=== PATIENT | female | born 1965 | race Caucasian/White ===

== ENCOUNTER 2023-07-27 12:30 | Inpatient (IN) | payer OTHER ==
[~2023-07-27] VITALS: Ht 157.5 cm; Wt 125.9 kg
--- NOTE | ~2023-07-27 | DS ---
[facility] [address], [place] [address] Draft ADMISSION DATE: 07/27/2023 DISCHARGE DATE: 07/31/2023 REASON FOR ADMISSION: This 57-year-old white woman presented to the emergency room where she was thoroughly evaluated by Dr. Lira with complaints of abdominal pain and findings of an incarcerated supraumbilical incisional hernia. She has a distant history of gastric bypass. The patient had been evaluated about eight years ago for incisional hernia that was not incarcerated and was recommended weight loss program, which she was unable to participate in unfortunately. In the previous two days to current admission, she has had progressive nausea and vomiting without associated blood. No bowel movement in the preceding three days. Her Adam-en-Y gastric bypass was approximately [address] scan of the abdomen showed fat stranding within the hernia and 4.2 cm minimum fascial defect and bowel obstruction including dilated small bowel loops and areas of complete decompression of small bowel. There was no certainty of internal hernia, though it is acknowledged she is at risk for that based on her prior gastric anatomy. She was noted to have a white count elevation of 16,000, hematocrit 48.2 with platelets of 298,000 and she was admitted for further evaluation and care. PERTINENT PHYSICAL EXAMINATION: GENERAL: Showed a significantly obese white woman with a BMI of 50.8. CHEST: Showed no sign of tachypnea. HEART: Showed a wide-complex QRS configuration variable between 90-147 beats per minute and right bundle branch block. ABDOMEN: Quite markedly obese. There is a nonreducible hernia in the midline above the umbilicus, which is mildly tender. There is no sign of erythema. HOSPITAL COURSE: A consultation was undertaken with a hospitalist, Dr. Diaz given her wide-complex tachycardia. She was noted to be with low normal magnesium and potassium. She was treated with intravenous beta astrid with some delay to operation on the need for stabilizing her heart rate, which was accomplished. She underwent emergency operation at approximately 11 p.m. on July 26, where she underwent reduction of incarcerated hernia in the supraumbilical area with a fascial defect of greater than 12 cm. Resection of portion of omentum was required some of it ischemic. Transverse colon was within the hernia sac as well. Intraabdominal lysis of adhesions was undertaken as there were still dilated loops of small bowel and interloop adhesions were notable. There was no sign of internal hernia concordant to her gastric bypass operation and no mesenteric defect which would account for such finding. She incidentally had a PATIENT NAME: STACEY GARCIA DISCHARGE SUMMARY DATE OF : 61 REPORT #: [id number] PHYSICIAN: AKIL OROZCO MD PCP: NO PRIMARY CARE PHYSICIAN REPORT IS CONFIDENTIAL AND NOT TO BE RELEASED WITHOUT AUTHORIZATION [address] [address] Draft resection of a small Meckel's diverticulum and a decompressing enterotomy of Adam-en-Y limb, which was chronically and quite markedly dilated. She was maintained in the postoperative time frame in the intensive care unit with close monitoring of her heart rate, which was managed from medical perspective. She had a nasogastric tube that had been in place was removed in the first postoperative day. She had progressive improvement and good control of her heart rate with beta astrid as directed by Dr. Diaz. By time of discharge she was ambulating well, tolerating a regular diet, has no nausea or vomiting. The incision is healing well. There was no sign of recurrent hernia. An abdominal binder is in use as well. Her discharge plan is to return to home. She should lift no more than 10 pounds for the next four weeks. She should use her abdominal binder over the operative site. A drain that was placed was removed prior to discharge. Steri-Strips are in place and she is permitted to shower. She should walk on a daily basis, but again avoid lifting more than 10 pounds for the next four weeks. DISCHARGE MEDICATIONS: Her current medications for discharge will include: 1. Atenolol 25 mg p.o. daily. 2. Ibuprofen 600 mg p.o. q.6 hours as needed for moderate pain. 3. Tylenol 1000 mg p.o. q.6 hours as needed for pain. 4. She will continue with trazodone 100 mg p.o. at bedtime vitamin D3 125 mcg p.o. at bedtime. DISCHARGE DIAGNOSES: 1. Incarcerated strangulated incisional hernia fascial defect 12.6 cm with ischemic portion of omentum (resected) and repair of incisional hernia with implantation of Prolene mesh in the properitoneal space. 2. Intraabdominal extensive lysis of adhesions for concurrent adhesive related small bowel obstruction. 3. Incidental excision of small Meckel diverticulum. 4. Decompressive enterotomy Adam-en-Y limb of small bowel. 5. Diagnosis of morbid obesity. BMI greater than 50. 6. Right bundle branch block with perioperative tachycardia (resolved). FOLLOWUP PLAN: She is return to see me in approximately a month. She will use her abdominal binder as instructed and with no more than 10 pounds for the next four weeks. PATIENT NAME: STACEY GARCIA DISCHARGE SUMMARY DATE OF : 61 REPORT #: [id number] PHYSICIAN: AKIL OROZCO MD PCP: NO PRIMARY CARE PHYSICIAN REPORT IS CONFIDENTIAL AND NOT TO BE RELEASED WITHOUT AUTHORIZATION [facility] [address], [place] [address] Draft MD ABY Neff/CARMELO /[id number] cc: Dr. Jesus Copies: ~ PATIENT NAME: STACEY GARCIA DISCHARGE SUMMARY DATE OF : 61 REPORT #: [id number] PHYSICIAN: AKIL OROZCO MD PCP: NO PRIMARY CARE PHYSICIAN REPORT IS CONFIDENTIAL AND NOT TO BE RELEASED WITHOUT AUTHORIZATION
[2023-07-27] MEDS ORDERED: ATENOLOL25 MG PO (12:39)
[2023-07-27] MEDS ORDERED: VITAMIN D3125 MC1 PO (12:40)
[2023-07-27] MEDS ORDERED: TRAZODONE HCL100 MG PO (12:40)
[2023-07-27 12:56] LABS: BASOPHILS 0.4 % (0-2); EOSINOPHILS 0.3 % (0-6); HEMATOCRIT 48.2 % (35.0-50.0); HEMOGLOBIN 16.1 g/dL (12.0-18.0); LYMPHOCYTES 11.4 % (24-44); MCH 28.8 (27-36); MCHC 33.4 g/dl (30-36); MCV 86.2 fl (81-99); MONOCYTES 7.5 % (0-12); NEUTROPHILS 80.4 % (39-80); PLATELET COUNT 298 K/uL (140-440); RBC 5.59 M/ul (4.3-5.7); RDW 13.7 (10.5-15.0)
[2023-07-27 13:12] LABS: ALBUMIN 3.8 g/dL (3.4-5.0); ALBUMIN/GLOBULIN RATIO 0.9 (1.1-2.4); ANION GAP 14.7 (7-21); BILIRUBIN, TOTAL 0.7 ng/dL (0.2-1.0); BUN/CREATININE RATIO 14.87 (6.0-28.6); CALCIUM 9.5 mg/dL (8.5-10.1); CREATININE, SERUM 1.21 mg/dL (0.55-1.02); MAGNESIUM 1.9 mg/dL (1.8-2.4); POTASSIUM 3.7 mmol/L (3.5-5.1)
[2023-07-27] MEDS ORDERED: LACTATED RINGER'S 1,000 ML IV PRN (14:00)
[2023-07-27] MEDS ORDERED: HYDROmorphone HCL 1 MG/ML SYR IV SCH ×2 (14:00→23:15)
[2023-07-27 14:22] LABS: BILIRUBIN, URINE NEGATIVE (negative); BLOOD/HGB, URINE NEGATIVE (Negative); KETONE, URINE NEGATIVE (Negative); LEUK ESTERASE, URINE NEGATIVE (negative); NITRITE, URINE NEGATIVE (negative)
[2023-07-27] MEDS ORDERED: HYDROmorphone HCL 1 MG/ML SYR IV ONE (15:45)
[2023-07-27] MEDS ORDERED: ondansetron HCL 4 MG/2 ML VIAL IV ONE (15:45)
[2023-07-27] MEDS ORDERED: LIDOCAINE 2% VISCOUS 6 ML SYR TOP ONE ×2 (17:00→22:45)
[2023-07-27] MEDS ORDERED: POTASSIUM CHLORIDE 40 MEQ,LIDOCAINE HCL 1% 40 MG in DEXTROSE 5% 500 ML IV ONE (17:15)
[2023-07-27] MEDS ORDERED: MAGNESIUM SULFATE 2 GM/50 ML BAG IV ONE (17:15)
[2023-07-27] MEDS ORDERED: hydrALAZINE HCL 20 MG/ML VIAL IV PRN (17:30)
[2023-07-27] MEDS ORDERED: METOPROLOL TARTRATE 5 MG/5 ML VIAL IV PRN (17:30)
--- NOTE | 2023-07-27 17:40 | NUR ---
rn in room 9 er for trsf to 127 ccu - skin assess wnl. pt to bsc to void lg amt just min before with looseleaf binder coverer, ngt with lg amt of green bile to int. suction. pt amb from strecher to bed on arrival to ccu. chlorhexidine wipes done and new gown for surgery plan, pt scds on and iv r ac wnl. vitals taken with dr contreras at bedside, hr 110-120s and room air 90-95%, bp 150/90 map 107.
[2023-07-27 18:22] VITALS: BP 120/83
--- NOTE | 2023-07-27 18:43 | NUR ---
pt to or via bed with lai rn, report to her at bedside, ngt clamped, and iv fusing kcl ang mg on pump site wnl. lr with strait tubing on standby and new iv in r hand placed at bedside. previous to that see emar - dr contreras at bedside and vo to push 5 mg of lopressor and wait then repeat (emar has vitals and times) pt is not symptomatic at this time her biggest complaint is the discomfort of the ngt in her nose. her s/o sonia is in room at bedside and he and pt are educated and agree with plan of care and sx with dr clemons. white board updated with contact info and pt out of dept.
[2023-07-27] MEDS ORDERED: CEFAZOLIN SODIUM 3 GM/30 ML SYR ONE (18:48)
[2023-07-27] MEDS ORDERED: SUGAMMADEX SODIUM 200 MG/2 ML ML ONE (18:51)
[2023-07-27] MEDS ORDERED: ROCURONIUM BROMIDE 50 MG/5 ML SYR ONE ×2 (18:51→19:39)
[2023-07-27] MEDS ORDERED: ACETAMINOPHEN 1,000 MG/100 ML VIAL ONE (18:51)
[2023-07-27] MEDS ORDERED: propofoL 200 MG/20 ML VIAL ONE (18:51)
[2023-07-27] MEDS ORDERED: SUCCINYLCHOLINE IN 0.9% NACL 200 MG/10 ML SYRINGE ONE (18:51)
[2023-07-27] MEDS ORDERED: LIDOCAINE HCL 2% 5 ML SDV ONE (18:51)
[2023-07-27] MEDS ORDERED: fentaNYL citrate 100 MCG/2 ML VIAL ONE (18:51)
[2023-07-27] MEDS ORDERED: MIDAZOLAM HCL 2 MG/2 ML VIAL ONE (18:52)
[2023-07-27] MEDS ORDERED: KETAMINE in NS 50 MG/5 ML SYR ONE (18:52)
[2023-07-27] MEDS ORDERED: LIDOCAINE HCL 2% 20 MG/ML VIAL INJ ONE (18:52)
[2023-07-27] MEDS ORDERED: ondansetron HCL 4 MG/2 ML VIAL ONE (18:53)
[2023-07-27] MEDS ORDERED: DEXAMETHASONE SOD PHOS 4 MG/ML VIAL ONE ×4 (18:53→21:10)
[2023-07-27] MEDS ORDERED: CEFAZOLIN SODIUM 3 GM/30 ML SYR IV ONE (19:00)
[2023-07-27] MEDS ORDERED: dexmedeTOMIDine HCl 200 MCG/2 ML VIAL ONE (19:25)
[2023-07-27] MEDS ORDERED: PHENYLEPHRINE HCL 10 MG/ML VIAL ONE (19:25)
[2023-07-27] MEDS ORDERED: fentaNYL citrate 50 MCG/ML SDV IV PRN (19:45)
[2023-07-27] MEDS ORDERED: ondansetron HCL 4 MG/2 ML VIAL IV PRN ×2 (19:45→22:45)
[2023-07-27] MEDS ORDERED: NALOXONE HCL 0.4 MG SYR IV PRN (19:45)
[2023-07-27] MEDS ORDERED: droPERidol 5 MG/2 ML VIAL IV PRN (19:45)
[2023-07-27] MEDS ORDERED: HYDROmorphone HCL 1 MG/ML SYR IV PRN ×2 (19:45→22:45)
[2023-07-27] MEDS ORDERED: PROCHLORPERAZINE EDISYLATE 10 MG/2 ML VIAL IV PRN ×2 (19:45→22:45)
[2023-07-27] MEDS ORDERED: IBLOOD GLUCOSE TEST STRIP 1 EA TEST VI PRN (19:45)
[2023-07-27] MEDS ORDERED: LACTATED RINGER'S 1,000 ML IV ONE ×3 (20:08→22:07)
[2023-07-27] MEDS ORDERED: Ropivacaine HCl 0.5% 30 ML VIAL ONE (21:10)
[2023-07-27] MEDS ORDERED: SODIUM CHLORIDE 0.9% 20 ML IV ONE (21:10)
--- NOTE | 2023-07-27 22:32 | EKG ---
[facility] [address] [place] [address] Signed Normal sinus rhythm Right bundle branch block Abnormal ECG No previous ECGs available Confirmed by Regis Perez MD () on 07/27/2023 10:31:53 PM Electronically Signed By: REGIS PEREZ MD 07/27/232231 PATIENT NAME: STACEY GARCIA Electrocardiogram DATE OF : 61 PHYSICIAN: REGIS PEREZ MD REPORT #: [id number] REPORT IS CONFIDENTIAL AND NOT TO BE RELEASED WITHOUT AUTHORIZATION
--- NOTE | 2023-07-27 22:37 | EKG ---
[facility] [address] [place] [address] Signed Wide QRS tachycardia with premature supraventricular complexes Right bundle branch block T wave abnormality, consider inferior ischemia Abnormal ECG When compared with ECG of 27-JUL-2023 16:13, Wide QRS tachycardia has replaced Sinus rhythm Confirmed by Regis Perez MD () on 07/27/2023 10:37:21 PM Electronically Signed By: REGIS PEREZ MD 07/27/23 2237 PATIENT NAME: STACEY GARCIA Electrocardiogram DATE OF : 61 PHYSICIAN: REGIS PEREZ MD REPORT #: [id number] REPORT IS CONFIDENTIAL AND NOT TO BE RELEASED WITHOUT AUTHORIZATION
[2023-07-27] MEDS ORDERED: KETOROLAC TROMETHAMINE 30 MG/ML VIAL IV PRN (22:45)
[2023-07-27] MEDS ORDERED: ACETAMINOPHEN 1,000 MG/100 ML VIAL IV PRN (22:45)
[2023-07-27] MEDS ORDERED: LACTATED RINGER'S 1,000 ML IV SCH (22:45)
--- NOTE | 2023-07-27 22:46 | NUR ---
07/27/232245 Lyudmila Bailon 2241: PT ARRIVES TO CCU ROOM 127, ACCOMPANIED BY MANAGER PRODUCTION, GOLF COURSE ARCHITECT, MARKET SUPERINTENDENT. ORAL AIRWAY IS IN PLACE. MANAGER PRODUCTION PERFORMING JAW THRUST. NO RESPONSE TO VERBAL OR TACTILE STIMULI.
[2023-07-27] MEDS ORDERED: FAMOTIDINE 20 MG/ 2 ML VIAL IV SCH (22:48)
--- NOTE | 2023-07-27 23:10 | NUR ---
RECEIVED REPORT FROM BIZTALK DEVELOPER. PATIENT IS RESTING IN BED. PATIENT REPORTS 4/10 PAIN. PAM ART BEDSIDE. IV INFUSING PER ORDER.
--- NOTE | 2023-07-27 23:56 | NUR ---
PATIENT CONTINUES TO RATE PAIN AT A 4/10, PRN PAIN MEDICATION GIVEN PER ORDER. PATIENT HAS SCDS IN USE. AVINASH EMPTIED. CLIFTON IN PLACE AND DRAINING YELLOW URINE. PATIENTS CLIFTON EMPTIED. ABD BINDER IN PLACE. PATIENT DENIES ANY NAUSEA. NG TO LWIS. PATIENT PROVIDED ICE SHIPS FOR COMFORT. PATIENT EDUCATED ON ICE CHIPS AND SIPS FOR COMFORT AND PATIENT VERBALIZED UNDERSTANDING. PATIENT IS ON RA. PATIENT DENIES ANY FURTHER NEEDS. CALL LIGHT IN REACH. IV INFUSING PER ORDER.
[2023-07-28] VITALS (14 sets, daily range): BP systolic 98–131; BP diastolic 61–89
--- NOTE | 2023-07-28 00:42 | NUR ---
PATIENT IS RESTING IN BED WITH EYES CLOSED, RR 19. IV INFUSING PER ORDER. PATIENTS CALL LIGHT IN REACH.
--- NOTE | 2023-07-28 01:02 | NUR ---
PATIENT IS RESTING IN BED. PATIENTS CLIFTON EMPTIED. AVINASH NO NEW DRAINAGE. NG TO LWIS. PATIENT DENIES ANY PAIN OR NAUSEA. PATIENT DENIES ANY FURTHER NEEDS. CALL LIGHT IN REACH. IV INFUSING PER ORDER. SCDS IN USE.
--- NOTE | 2023-07-28 02:32 | NUR ---
PATIENT RESTING IN BED WITH EYES CLOSED. THIS RN NOTED THAT PATIENTS HR WAS 143 THEN DROPPED INTO THE 130'S AND SUSTAINDED, PRN MEDICATION GIVEN PER ORDER. PATIENT DENIES ANY CHEST PAIN OR PRESSURE. PATIENT DENIES ANY PAIN OR NAUSEA. PATIENT DENIES ANY NEEDS CALL LIGHT IN REACH. IV INFUSING PER ORDER.
--- NOTE | 2023-07-28 03:21 | NUR ---
PATIENT PLACED ON OXYMASK DUE TO PATIENTS OXYGEN DECREASING INTO THE LOW 80'S WHILE ASLEEP. PATIENT BRIEFLY AWOKE AND DENIES ANY PAIN OR NAUSEA. PATIENT DENIES ANY FURTHER NEEDS. CALL LIGHT IN REACH. IVINFUSING PER ORDER.
--- NOTE | 2023-07-28 04:16 | NUR ---
PATIENT REPOSITIONED IN BED. PATIENT DENIES ANY PAIN OR NAUSEA. NG TO LWIS. IV INFUSING PER ORDER. PATIENT DENIES ANY FURHTER NEEDS. CALL LIGHT IN REACH. CLIFTON EMPTIED. CATH CARE COMPLETED.
--- NOTE | 2023-07-28 04:56 | NUR ---
PLACED CALL TO MD WITH CONCERNS OF PATIENTS INCREASING HR INTO THE 130-140 AND SUSTAINING IN THE HIGH 120'S. VERBAL ORDER RECEIVED TO REPEAT IV LOPRESSOR X1, VERIFIED ORDER USING THE REPEATBACK METHOD. PATIENT IS RESTING IN BED WATCHING TV ON HER PHONE. PATIENT DENIES ANY CHEST PAIN OR PRESSURE. PATIENT DENIES ANY PAIN OR NAUSEA. PATIENT DENIES ANY NEEDS. CALL LIGHT IN REACH.
[2023-07-28 05:36] LABS: HEMOGLOBIN 14.6 g/dL (12.0-18.0)
[2023-07-28 05:38] LABS: BASOPHILS 0.1 % (0-2); HEMATOCRIT 44.7 % (35.0-50.0); LYMPHOCYTES 5.9 % (24-44); MCH 28.5 (27-36); MCHC 32.6 g/dl (30-36); MCV 87.5 fl (81-99); MONOCYTES 6.4 % (0-12); NEUTROPHILS 87.6 % (39-80); PLATELET COUNT 252 K/uL (140-440); RDW 13.6 (10.5-15.0)
--- NOTE | 2023-07-28 05:42 | NUR ---
PATIENT IS RESTING IN BED WATCHING TV. PATIENTS HR INCREASED INTO THE 140'S. PLACED CALL TO . RECEIVED ORDER TO GIVE LOPRESSOR 5MG IV NOW AND THEN WAIT WAIT 5-10 MIN AND REPEAT 5MG DOSE IF HR CONTINUES TO BE ELEVATED AND BP IS WNL. PATIENT CONTINUES TO DENY ANY CHEST PAIN OR PRESSURE.
[2023-07-28 05:51] LABS: ALBUMIN 2.8 g/dL (3.4-5.0); ALBUMIN/GLOBULIN RATIO 0.85 (1.1-2.4); ANION GAP 11.4 (7-21); BILIRUBIN, TOTAL 0.7 ng/dL (0.2-1.0); BUN/CREATININE RATIO 16.52 (6.0-28.6); CALCIUM 8.2 mg/dL (8.5-10.1); CREATININE, SERUM 1.15 mg/dL (0.55-1.02); MAGNESIUM 2.1 mg/dL (1.8-2.4); PHOSPHORUS, INORGANIC 4.8 mg/dL (2.5-4.9); POTASSIUM 4.4 mmol/L (3.5-5.1); PROTEIN, TOTAL 6.1 g/dL (6.4-8.2)
--- NOTE | 2023-07-28 05:59 | NUR ---
PATIENT GIVEN PRN LOPRESSOR AT APPROX 0540. HR DECREASED THEN RETURN TO THE 130'S. SECOND DOSE OF IV LOPRESSOR GIVEN PER ORDER. PATIENT CONTINUES TO REST IN BED WATCHING TV ON HER PHONE. NO NEEDS NOTED. CALL LIGHT IN REACH.K
[2023-07-28] MEDS ORDERED: CEFAZOLIN SODIUM 3 GM/30 ML SYR IV SCH (06:00)
--- NOTE | 2023-07-28 07:20 | NUR ---
report from mason rn, pt up in on phone - denies needs or symptoms - hr 120-140 dr jeter, call light in [place] to gravity.
--- NOTE | 2023-07-28 07:49 | NUR ---
DR PEREZ HERE - REVIEW TELE - PT HR VARIES 95-130 SINUS TACHY - HE WILL PUT IN NEW ORDERS.
[2023-07-28] MEDS ORDERED: LORazepam 2 MG/ML VIAL IV ONE (08:00)
--- NOTE | 2023-07-28 08:26 | NUR ---
curtains open - pt up in room with rn to manage lines/ngt - stand and walk/leg raises/strech. back to with call light - hr 140's with exertion, 94 hr at rest - ativan give see emar for relaxation and anxiety - pt is anxious to go home and get better. re assured. cain to gravity, rita to rlq wnl, ab binder on and cdi, ngt intermit suction with green bile to suction. ngt site r maggie wnl. call light in hand.
--- NOTE | 2023-07-28 08:55 | NUR ---
pt up in chair - dr contreras here in room. discuss plan of care.
--- NOTE | 2023-07-28 09:01 | NUR ---
dr clemons in room with dr contreras and pt/family. discuss plan of care.
[2023-07-28] MEDS ORDERED: METOPROLOL TARTRATE 5 MG/5 ML VIAL IV SCH (09:30)
--- NOTE | 2023-07-28 09:40 | NUR ---
PATIENT ALERT AND ORIENTED, UP IN RECLINER. SIGNIFICANT OTHER IN ROOM WELL. VERIFY DEMOGRAPHICS WITH PATIENT. LIVES IN HOUSE, NO STAIRS. STATES SHE HAS A BP CUFF, NO DME. REMAINS CAPABLE OF DRIVING AT BASELINE. NO FINANCIAL HARDSHIP. ABLE TO PAY UTILITIES, BUY FOOD AND MEDICATION WITHOUT DIFFICULTY. DOES NOT HAVE ANY KNOWN NEEDS AT THIS TIME. INFORMED IF NEEDS [facility] TO NOTIFY STAFF AND THEY WILL CALL CASE MANAGEMENT. VERBALIZES UNDERSTANDING.
--- NOTE | 2023-07-28 09:48 | NUR ---
VISITED DURING SPIRITUAL CARE ROUNDS. LISTENED EMPATHETICALLY PT TALKED OF HEALTH AND SPIRITUAL STATUS; REPORTED NO NEEDS; EXHIBITED GOOD HUMOR, STRONG RELATIONAL RESOURCES. PROVIDED SUPPORTIVE PRESENCE, HOSPITALITY, ANTICIPATORY GUIDANCE, PRAYER. PT AND EXPRESSED GRATITUDE.
--- NOTE | 2023-07-28 09:52 | NUR ---
PT UP IN CHAIR - RESTING - HR IS 88 AND PT FEELING WELL VISITING WITH FRIEND. MUKESH IS WORKING WELL.
--- NOTE | 2023-07-28 10:13 | NUR ---
PT STOOD UP FROM CHAIR - ETIENNE EVANGELISTA WNL, PT AMB IN ROOM AND BACK TO BED, WITH CALL LIGHT IN REACH - IV WNL R ARM. NGT TO INT. SUCTION WNL - AVINASH WNL, HR WELL CONTROLLED AT 88.
--- NOTE | 2023-07-28 12:32 | NUR ---
UR CLINICAL REVIEW: [facility] COMP INPT 07/27/23 @ 2249 YES-STATUS MATCHES ORDER AUTH PENDING CLINICAL REVIEW PLAN TO DC TO HOME WHEN STABLE CONCURRENT REVIEW 07/31/23
--- NOTE | 2023-07-28 13:13 | NUR ---
rn assist pt to chair for comfort, i/o complete - rita with red drainage site wnl, ab binder adjusted, iv clearned and site wnl, ngt 300 ml green/yellow bile out. pt in with call light watching tv, hr 88 after 5 mg lobetalol - see emar,.
--- NOTE | 2023-07-28 14:57 | NUR ---
pt amb to br with rn, void 200 ml urine, back to chair - denies needs, sob with exertion noted - pt reports sedentary lifestyle and sob is normal.
[2023-07-28] MEDS ORDERED: LORazepam 2 MG/ML VIAL IV PRN (16:00)
--- NOTE | 2023-07-28 16:11 | NUR ---
MED REC COMPLETE
--- NOTE | 2023-07-28 16:35 | NUR ---
CALL LIGHT ANSWERED, PATIENT SNEEZED AND WAS WORRIED SHE OPENED INCISION, CATE PHELAN IN TO ACCESS. PATIENT INTO BR FOR SMALL VOID. BACK TO BED, AVINASH DRAINED 40ML CHARTED. CALL LIGHT AND PERSONAL ITEMS IN EASY REACH. IN ROOM
--- NOTE | 2023-07-28 18:51 | NUR ---
pt reports feeling well - called for blanket - denies needs.
--- NOTE | 2023-07-28 20:30 | NUR ---
PATIENT PROVIDED SCHEDULED MEDS. PATIENT UP TO THE BATHROOM WITH SBA. PATIENT TOLERATED WELL, SOB WITH ACTIVITY. TOLERATES RA. LUNG SOUNDS ARE CLEAR. PATIENT REPORTS ADEQUATE PAIN CONTROL. ABD BINDER IN PLACE. NO GI UPSET. NG TUBE FLUSHED WITH 30MLS WATER. CONTINUED LIWS. PATIENT VS STABLE. HR 120-130 WITH FREQUENT PVCs. BRIT DRAIN EMPTIED FOR 20 MLS RED DRAINAGE. PATIENT RETURNED TO BED. ASSISTED TO WASH HER FACE AND BRUSH HER HAIR. IVF INFUSING PER ORDER, SITE WNL.
--- NOTE | 2023-07-28 22:46 | NUR ---
PATIENT PROVIDED WITH SCHEDULED MEDS AND PRN ATIVAN FOR ANXIETY. PATIENT IS MOSTLY ANXIOUS ABOUT THE NG TUBE AND NOT BEING ABLE TO EAT. DISCUSSED PLAN OF CARE, PATIENT VERBALIZED UNDERSTANDING. PAIN IS WELL CONTROLED AT THIS TIME. NO GI UPSET. VS STABLE. HR IRREGULAR, SINUS WITH P-WAVES BUT FREQUENT RUNS OF PVCs. BP WNL. PATIENT TOLERATING ROOM AIR. CALL LIGHT IN REACH.
--- NOTE | 2023-07-28 23:46 | NUR ---
PT CALLED TO USE RESTROOM. PT HAS CALL LIGHT IN REACH.
--- NOTE | 2023-07-29 00:31 | NUR ---
PATIENT APPEARS COMFORTABLE RESTING IN BED EYES CLOSED. VS STABLE. HR CONTINUES TO BE IRREGULAR; HR 110-140'S. NOT SUSTAINING GREATER THAN 130'S. TOLERATING ROOM AIR. NG TUBE TO LIWS. IVF PER ORDER, SITE WNL. CALL LIGHT IN REACH.
--- NOTE | 2023-07-29 00:51 | NUR ---
PATIENT PROVIDED PRN PAIN MEDS FOR PAIN 5/10 IN ABD. PATIENT DENIED GI UPSET. NG TUBE DRAINING WELL WITH LIWS. VS STABLE. CALL LIGHT IN REACH.
--- NOTE | 2023-07-29 02:00 | NUR ---
PATIENT UP TO THE BSC TO VOID. PATIENT VOIDED AND RETURNED TO BED WITH ASSIST OF SCRAP KETTLE TENDER. ABOUT 10 MINS LATER PATIENT GOT UP UNASSISTED TO THE BSC TO ATTEMPT TO HAVE A BM. ZI RN FOUND PATIENT WITH CORDS TANGLED AND NG TUBE TAPE BEING PULLED FROM NOSE. NG TUBE APPEARS TO STILL BE FUNCTIONAL WITH DRAINAGE NOTED WITH SUCTION. PATIENT DID NOT HAVE BM. PINK TAPE PLACED ON NG TUBE BY THIS RN AND PATIENT ASSISTED BACK INTO BED. PATIENT AGREES SHE SHOULD NOT EXIT BED WITHOUT ASSIST. BED ALARM ACTIVE. BSC MOVED FROM VIEW. PATIENT RESTING IN BED NEW. MONITOR IN PLACE. IV SITE WNL, IVF PER ORDER. CALL LIGHT IN REACH.
--- NOTE | 2023-07-29 04:00 | NUR ---
PATIENT APPEARS RESTFUL IN BED. VS STABLE. IVF PER ORDER, SITE WNL. CALL LIGHT IN REACH.
--- NOTE | 2023-07-29 05:30 | NUR ---
PATIENT UP TO BSC. TOLERATED WELL. REPORTS FEELING LIKE SHE IS MOVING EASILY NOW. SCHEDULED MEDS PROVIDED PER ORDER. VS STABLE. HR CONTINUES TO BE IRREGULAR 110-130'S. TOLERATING ROOM AIR. PAIN WELL CONTROLED. ABD BIND OPENS, SURGICAL DRESSING IN PLACE. NO NEW DRAINAGE. REAPPLIED BINDER. BRIT DRAIN EMPTIED FOR 60 MLS SEROSANG DRIANAGE WITH SMALL CLOTS. NG TUBE IN PLACE, TAPE REAPPLIED. PATIENT HAS BEEN EATING ICE CHIPS, ABOUT 250 MLS IN. NG DRAINAGE 600 MLS (850 TOTAL, MINUS THE 250 FOR ICE/WATER). DRAINAGE IS BROWN IN COLOR. PATIENT RESTING IN BED. CALL LIGHT IN REACH.
[2023-07-29 05:35] LABS: BASOPHILS 0.3 % (0-2); EOSINOPHILS 0.4 % (0-6); HEMATOCRIT 41.4 % (35.0-50.0); HEMOGLOBIN 13.7 g/dL (12.0-18.0); LYMPHOCYTES 24.4 % (24-44); MCH 28.9 (27-36); MCV 87.7 fl (81-99); NEUTROPHILS 65.9 % (39-80); PLATELET COUNT 251 K/uL (140-440); RBC 4.72 M/ul (4.3-5.7); RDW 13.4 (10.5-15.0)
[2023-07-29 05:36] VITALS: BP 144/99
[2023-07-29 05:58] LABS: ANION GAP 8.6 (7-21); BUN/CREATININE RATIO 19.04 (6.0-28.6); CALCIUM 7.8 mg/dL (8.5-10.1); CREATININE, SERUM 1.26 mg/dL (0.55-1.02); MAGNESIUM 2.3 mg/dL (1.8-2.4); POTASSIUM 3.6 mmol/L (3.5-5.1); TSH, 3RD GENERATION 0.229 uIU/mL (0.358-3.740)
--- NOTE | 2023-07-29 06:35 | NUR ---
UPDATED ON PATIENT'S HR AND RHYTHM FOR THE SHIFT.
--- NOTE | 2023-07-29 07:05 | NUR ---
CALL LIGHT ANSWERED, PATIENT UP TO BSC WITH SBA FOR SMALL VOID AND THEN INTO RECLINER. NG TUBE IN PLACE. PATIENT TOLEREATED ACTIVITY WELL. CALL LIGHT AND PERSOANL ITEMS IN EASY REACH
[2023-07-29 08:15] VITALS: BP 99/77
--- NOTE | 2023-07-29 08:16 | NUR ---
MASSEUR/MASSEUSE REPORTED NGT OUT, PT REPORTED THAT SHE TRIED TO STAND UP TO REPOSITION HERSELF AND THE NGT CAME OUT. XRAY IN NOW FOR ABD XRAY
--- NOTE | 2023-07-29 08:51 | NUR ---
PATIENT RESTING IN CHAIR AT THIS TIME. AM VITALS AND OUTPUT WAS CHARTED. PATIENT STATED THAT THE NG TUBE HAD BECOME LOOSE LAST NIGHT AND THIS MORNING THE NG TUBE GOT COUGHT UNDERNEATH THE IV POLE AND CAME OUT HALF WAY. PATIENT STATED THAT SHE PROCEEDED TO PULL THE NG TUBE OUT ALL THE WAY. RN HAS BEEN NOTIFIED AND ALL PERSONAL ITEMS WERE AT CHAIR WITH PATIENT. CALL LIGHT WITHIN REACH, NO FURTHER NEEDS AT THIS TIME.
--- NOTE | 2023-07-29 09:10 | NUR ---
PT REMAINS SITTING UP CHAIR, STATES "I FEEL GOOD". RESTING HR 113-123. IV LOPRESSOR GIVEN PER EMAR.
--- NOTE | 2023-07-29 09:22 | NUR ---
PCP CONTACTED AT THIS TIME FOR MEDICAL RECORDS
--- NOTE | 2023-07-29 10:00 | NUR ---
PT UP TO GO FOR A WALK, WENT TO BR TO VOID AND OUT INTO HALLWAY, HR UP TO 130'S, DENIES DIZZINESS/SOB/LIGHTHEADEDNESS. THEN BACK TO BED AND WANTS TO TAKE A NAP, TORADOL GIVEN FOR PAIN.
[2023-07-29 12:25] VITALS: BP 96/50
--- NOTE | 2023-07-29 12:30 | NUR ---
IN TO CHECK ON PT, AWAKE IN BED, STATES SHE HAS BEEN NAPPING OFF AND ON AND IS COMFORTABLE. AVINASH IN PLACE DRAINING SS FLUID, ABD BINDER IN PLACE, CDI. PT REPORTS MINIMAL PAIN, 2/10.
[2023-07-29] MEDS ORDERED: POTASSIUM CHLORIDE 40 MEQ,LIDOCAINE HCL 1% 40 MG in DEXTROSE 5% 500 ML IV ONE (12:45)
--- NOTE | 2023-07-29 14:59 | NUR ---
PATIENT USED CALL LIGHT TO LET JEWELRY SALES REPRESENTATIVE KNOW THAT SHE HAS TO USE THE COMMODE. JEWELRY SALES REPRESENTATIVE ASSISTED PATIENT TO COMMODE AND THEN BACK TO BED. PATIENT VOIDED URINE IN BEDSIDE COMMODE. PATIENT IS NOW BACK IN BED, CALL LIGHT WITHIN REACH, NO FURTHER NEEDS AT THIS TIME.
[2023-07-29] MEDS ORDERED: atenoloL 25 MG TAB PO SCH (15:00)
--- NOTE | 2023-07-29 15:15 | NUR ---
DR OROZCO IN TO SEE PT ALONG WITH DR PEREZ, DISCUSSED PLAN OF CARE, WILL KEEP NGT OUT FOR NOW AND SEE IF PT CAN TOLERATE CLEAR LIQUIDS. WILL TRY HOME ATENOLOL FOR HR CONTROL.
[2023-07-29] MEDS ORDERED: ACETAMINOPHEN 500 MG TAB PO PRN (15:45)
[2023-07-29] MEDS ORDERED: OXYCODONE/APAP 7.5/325 TAB PO PRN (15:45)
[2023-07-29 16:06] VITALS: BP 101/86
--- NOTE | 2023-07-29 18:16 | NUR ---
RETAIL SALESMAN WENT IN PATIENTS ROOM TO DO HOURLY ROUNDING, PATIENT ASKED FOR ICE WATER AND JELLO. RETAIL SALESMAN NOTIFIED RN, MAKING SURE THAT PATIENT CAN HAVE JELLO. RETAIL SALESMAN PROVIDED ICE WATER CAN JELLO. CALL LIGHT WITHIN REACH, NO FURTHER NEEDS AT THIS TIME.
--- NOTE | 2023-07-29 18:30 | NUR ---
PT RESTING IN BED WITH EYES CLOSED, RESP EVEN AND UNLABORED, HR 80'S REGULAR SINUS RHYTHM.
--- NOTE | 2023-07-29 20:01 | NUR ---
PATIENT PROVIDED PRN TORADOL FOR PAIN, SEE EMAR. PATIENT RESTING IN BED. REPORTS FEELING WELL TODAY OVER ALL. DENIED GI UPSET. HR 80-90'S. IV SITE WNL. CALL LIGHT IN REACH. HAILEY LOMBARDI IN TO EMPTY AVINASH DRAIN.
[2023-07-29 20:53] VITALS: BP 102/69
[2023-07-29] MEDS ORDERED: FAMOTIDINE 20 MG TAB PO SCH (21:00)
--- NOTE | 2023-07-29 23:47 | NUR ---
PT CALLED TO USE THE RESTROOM. I GAVE PT WATER AND A JELLO. PT HAS CALL LIGHT AND IS OKAY
--- NOTE | 2023-07-30 00:58 | NUR ---
PATIENT REMAINS ON RA. TAKING OFF RT SERVICE. PLEASE CALL WITH ANY CONCERNS OR O2 USE.
--- NOTE | 2023-07-30 02:46 | NUR ---
PATIENT UP TO THE BSC. TOLERATED WELL. PRN MEDS GIVEN FOR PAIN 05/24. PATIENT RETURNED TO BED. NO OTHER NEEDS AT THIS TIME. CALL LIGHT IN REACH.
--- NOTE | 2023-07-30 04:00 | NUR ---
PATIENT APPEARS COMFORTABLE IN BED. RR 16. HR 70-80. CALL LIGHT IN REACH.
[2023-07-30 05:24] LABS: BASOPHILS 0.6 % (0-2); EOSINOPHILS 1.6 % (0-6); HEMATOCRIT 37.7 % (35.0-50.0); HEMOGLOBIN 12.4 g/dL (12.0-18.0); LYMPHOCYTES 31.6 % (24-44); MCV 88.1 fl (81-99); MONOCYTES 8.4 % (0-12); NEUTROPHILS 57.8 % (39-80); PLATELET COUNT 216 K/uL (140-440); RBC 4.28 M/ul (4.3-5.7); RDW 13.7 (10.5-15.0)
[2023-07-30 05:40] LABS: ANION GAP 9.7 (7-21); BUN/CREATININE RATIO 19.8 (6.0-28.6); CALCIUM 7.7 mg/dL (8.5-10.1); CREATININE, SERUM 1.01 mg/dL (0.55-1.02); POTASSIUM 3.7 mmol/L (3.5-5.1)
--- NOTE | 2023-07-30 06:00 | NUR ---
PATIENT VS STABLE. PATIENT FEELS WELL THIS MORNING. PAIN WELL CONTROLLED. BRIT DRAIN SITE WNL. MIDLINE DRESSING CDI, ABD BINDER IN PLACE. PATIENT UP TO THE BATHROOM WITH GARDEN MACHINERY MECHANIC ASSIST.
[2023-07-30 06:22] VITALS: BP 104/65
--- NOTE | 2023-07-30 07:54 | NUR ---
REPORT RECEIVED FROM SHAINA ESPOSITO. PT IS RESTING IN BED WITH EYES CLOSED, RESP EVEN AND UNLABORED, HR 70'S SINUS RHYTHM, REGULAR AT THIS TIME.
--- NOTE | 2023-07-30 09:49 | NUR ---
DR OROZCO IN TO SEE PT, PT HAS GOTTEN HERSELF INTO CHAIR. PLAN TO ADVANCE TO REGUALR DIET AND POSSIBLY DC TOMORROW.
[2023-07-30 09:54] VITALS: BP 128/78
--- NOTE | 2023-07-30 11:08 | NUR ---
PT WAS ABLE TO EAT SOME SCRAMBLED EGGS AND YOGURT AND TOELRATED WELL. NO C/O AT THIS TIME.
--- NOTE | 2023-07-30 12:12 | OR ---
[facility] [address], [place] [address] Signed DATE OF OPERATION: 07/27/2023 SURGEON: Akil Orozco MD PREOPERATIVE DIAGNOSES: 1. Small-bowel obstruction secondary to incarcerated incisional hernia. 2. Morbid obesity. 3. History of gastric bypass operation greater than 20 years ago. 4. Right bundle branch block with recent tachycardia. POSTOPERATIVE DIAGNOSES: 1. Small-bowel obstruction secondary to incarcerated incisional hernia. 2. Morbid obesity. 3. History of gastric bypass operation greater than 20 years ago. 4. Right bundle branch block with recent tachycardia. 5. Small Meckel's diverticulum. 6. Interloop intra-abdominal adhesions. No discernible internal hernia at this time. PROCEDURE: 1. Reduction of incarcerated hernia including the omentum and transverse colon. 2. Repair of complex incisional hernia defect greater than 12 cm including implantation of Prolene mesh in the properitoneal space and primary approximation in the midline fascia. 3. Intra-abdominal lysis of adhesions and reduction of small-bowel obstruction. 4. Partial omentectomy. 5. Resection of small Meckel's diverticulum. 6. Decompressive enterotomy of Adam-en-Y limb of small bowel. ANESTHESIA: General endotracheal. [place] CRNA and postoperative external intercostal blocks. INDICATION: This 57-year-old rotund white woman underwent gastric bypass operation greater than 20 years ago. She apparently presented several years ago for consideration of repair of incisional hernia. However, the weight loss management program was deemed advisable as a prehabilitation measure, though she never followed through with that. For the past two days, she has had progressive nausea and bilious vomiting and presented to the emergency room where she was evaluated by Dr. Lira. Electronically Signed By: AKIL OROZCO MD 07/30/23 1212 PATIENT NAME: STACEY GARCIA OPERATIVE REPORT DATE OF : 61 REPORT #: [id number] PHYSICIAN: AKIL OROZCO MD PCP: NO PRIMARY CARE PHYSICIAN REPORT IS CONFIDENTIAL AND NOT TO BE RELEASED WITHOUT AUTHORIZATION [facility] [address], [place] [address] Signed FINDINGS: Included copious bilious vomiting. A CT scan showing a complex incisional hernia in the upper midline incision cephalad to the umbilicus with omentum and colon within it as well as intra-abdominal small-bowel obstruction. I did not discern an internal hernia related to prior gastric bypass, so it was certainly considered. Initially she had a tachyarrhythmia with a known right bundle branch block, which improved with placement of a nasogastric tube for decompression of her markedly dilated stomach, but also with medical intervention include electrolyte administration under the direction of Dr. Diaz, hospitalist. She has been fluid resuscitated and is now to undergo operation to reduce the incarcerated possible strangulated hernia at the incision and remedy of the small-bowel obstruction. The patient understands the risk of bleeding, infection, need for bowel resection and other indicated procedures and wished to proceed. Findings; beneath the skin and the subcutaneous tissue, there was a relatively chronic and dense hernia sac that incorporated, but initially appeared to be bowel, but ultimately was found to be dominantly omentum, some of which was quite ischemic, but not frankly necrotic. Partial omentectomy was performed on that basis. The fascial defect was approximately 6 cm. Initially, but incision of the fascia superiorly and inferiorly was required to allow for reduction of the herniated viscera. The portion of transverse colon was involved in the incarceration as well, but it was not harmed and certainly not ischemic. Intraabdominal inspection showed some dilated small-bowel loops and at least one segment with apparent ischemia, but without necrosis in any way. Careful inspection was made to assess for an internal hernia related to prior gastric bypass, but I could not find a defect in the typical area. Reduction of the small-bowel was undertaken internally, plan for decompression. Quite notable was dilation of what I believe to be the Adam limb extending towards the gastric pouch. The proximal jejunum as it coursed beneath the superior mesenteric vascular arcade was identified and although somewhat dilated and inflamed. A dominant dilated segment to which it joined presumably the Adam limb was quite boggy and quite markedly and chronically distended. This required enterotomy for decompression with all due care. Other adhesions within the abdomen were freed completely. Repair consisted of implantation of a 6 inch x 6 inch Prolene mesh cut to an elliptical configuration in an underlay technique in the properitoneal space with reapproximation of the fascia using Prolene and Prolene pledgets as well. Incidentally noted was a small apparent Meckel's diverticulum, which was tethered against the abdominal wall and appeared to be providing some point of obstruction as well. This was excised with simple diverticulectomy transversely, taking care to avoid narrowing of the small-bowel lumen. Electronically Signed By: AKIL OROZCO MD 07/30/23 1212 PATIENT NAME: STACEY GARCIA OPERATIVE REPORT DATE OF : 61 REPORT #: [id number] PHYSICIAN: AKIL OROZCO MD PCP: NO PRIMARY CARE PHYSICIAN REPORT IS CONFIDENTIAL AND NOT TO BE RELEASED WITHOUT AUTHORIZATION [facility] [address], [place] [address] Signed DESCRIPTION OF PROCEDURE: The patient was brought to the operating room, given a general endotracheal anesthetic. I placed her NG tube myself in the emergency room and it delivered nearly 2 L of bilious fluid. A Coleman catheter was placed. Preoperative antibiotic Ancef 3 g was given. After satisfactory general endotracheal anesthesia, the abdomen was prepared with a chlorhexidine solution and draped sterilely. The large and bulky hernia cephalad to the umbilicus in the previous upper midline incision was easily identified, but not reducible by any means. An incision was made with a 15 blade over the incision cephalad to the umbilicus. Dissection was carried through the dermis and electrocautery used for further dissection. Immediately noted was a fibrous hernia sac within the subcutaneous space. The subcutaneous tissue was freed circumferentially with blunt and electrocautery dissection with meticulous care. This was rather time-consuming, but ultimately allowed for definition of the abdominal wall fascia in relation to the bulky herniated viscus within the fibrous sac itself. The fascia was incised superiorly and inferiorly, though the initial defect was at least 6 cm. This allowed for easier reduction of the herniated abdominal contents. The hernia sac was identified and incised and within it was found to be omentum in copious amounts including a generous portion that was actually quite ischemic. The ischemic portion of omentum was excised securing the vascular pedicles with hemostats and 2-0 silk ties. Healthy and quite obviously redundant omentum was spared. The omentum was replaced into the abdominal cavity. Notable within the abdominal cavity were bowel loops that were dilated and these had not been incorporated within the hernia itself. There was a segment of transverse colon, which was in the hernia, but with reduction quite clearly with viable and without sign of ischemic change or chronic stricture. Small-bowel loops were quite dilated in the proximal portion with various manipulations, one could identify the proximal jejunum (ligament of Treitz) that bowel loop was somewhat dilated and inflamed and passed to an area of great congestion and chronic dilation, a stents I believe the Adam limb extending to the gastric pouch itself. Midline incision was extended cephalad a bit to allow for better characterization of this. I did not feel, though I did look quite extensively for an interparietal defect that may have caused an internal hernia in addition to the hernia of the abdominal wall. A segment of small-bowel was withdrawn from the depths of the abdomen, which clearly had ischemic changes, but no sign of necrosis proper. Whether this was within an internal hernia or not is uncertain. Lysis of adhesions was undertaken in which the small-bowel that were distended and inflamed. There was definitely segments of small-bowel, but they were completely decompressed and completely normal. Decompression of the dilated Adam limb segment was deemed advisable, given its size and uncertainty as to its significance in this setting. Within isolating laparotomy towel, a pursestring suture of 3-0 silk was made in the antrum as a tear portion of the Adam limb and a small defect in the bowel allowed for decompression of air. The defect was Electronically Signed By: AKIL OROZCO MD 07/30/23 1212 PATIENT NAME: STACEY GARCIA OPERATIVE REPORT DATE OF : 61 REPORT #: [id number] PHYSICIAN: AKIL ORZOCO MD PCP: NO PRIMARY CARE PHYSICIAN REPORT IS CONFIDENTIAL AND NOT TO BE RELEASED WITHOUT AUTHORIZATION [facility] [address], [place] [address] Signed secured with not only the pursestring, but transverse interrupted 3-0 silk sutures to completely occlude the decompressive site. Attention was then turned towards the remaining bowel. The bowel was freed up as much as possible using sharp dissection and there being no internal defect that could be identified to account for obstructive process. Re-evaluation of small-bowel in the decompressed portion showed a small Meckel's diverticulum adherent to the abdominal wall. This was freed and uncertain if it was a true Meckel's diverticulum, was noted on the antimesenteric side to have a blood vessel extending from the mesentery. This most consistent with small Meckel's diverticulum, which was adherent to the abdominal wall. A Meckel's diverticulum was transected transversely with the ROBIN stapling device with care taken to avoid luminal narrowing. Once satisfied that all the bowel returned to the peritoneal cavity was decompressed without sign of ischemia. Plans were then made for repair of the hernia itself. The peritoneum was freed circumferentially over the abdominal wall and ultimately reapproximated with interrupted with running 2-0 Vicryl so as to provide a biologic barrier in the properitoneal space. A segment of Prolene mesh 6 inch x 6 inch was cut to an elliptical configuration and secured in the properitoneal space with all due care with overlap of the fascial edges approximately 4 cm. The mesh was secured in place with interrupted 0 Prolene sutures with Prolene pledgets circumferentially. The midline fascia was then reapproximated with interrupted 0 Prolene with Prolene pledgets as well. Initial fascial defect was greater than 6 cm. The ultimate defect was approximately 12 cm. Irrigation was undertaken and through the right lower quadrant stab incision, a 7 mm flat Alex drain was placed in the appropriate into the subcutaneous space. Subcutaneous tissue was reapproximated with interrupted 2-0 Vicryl suture with obliteration of the space securing the subcutaneous tissue this underlying fascia as well. The skin was then closed with running subcuticular 3-0 Vicryl. Steri-Strips were applied as was an Acticoat dressing. The drain was attached to bulb suction. Blood loss was less than 50 mL in aggregate. The operation was prolonged, complicated, and difficult, lasting nearly 3 hours. It was accomplished safely, however. The patient was fitted with an abdominal binder after a postoperative regional pain block placed by the renewable energy trader. She was extubated and transferred to the recovery room in good condition. Electronically Signed By: AKIL OROZCO MD 07/30/23 1212 PATIENT NAME: STACEY GARCIA OPERATIVE REPORT DATE OF : 61 REPORT #: [id number] PHYSICIAN: AKIL OROZCO MD PCP: NO PRIMARY CARE PHYSICIAN REPORT IS CONFIDENTIAL AND NOT TO BE RELEASED WITHOUT AUTHORIZATION [address] [address] Signed Akil Orozco MD JM/MODL /[id number] cc: Vern Lira MD Copies: VERN LIRA MD ~ Electronically Signed By: AKIL OROZCO MD 07/30/23 1212 PATIENT NAME: STACEY GARCIA OPERATIVE REPORT DATE OF : 61 REPORT #: [id number] PHYSICIAN: AKIL OROZCO MD PCP: NO PRIMARY CARE PHYSICIAN REPORT IS CONFIDENTIAL AND NOT TO BE RELEASED WITHOUT AUTHORIZATION
--- NOTE | 2023-07-30 12:12 | HP ---
[facility] [address], [place] [address] Signed ADMISSION DATE: 07/27/2023 TIME: 04:30 p.m. PROBLEM: Incarcerated hernia with increased symptoms and morbid obesity. HISTORY OF PRESENT ILLNESS: This 57-year-old white woman presented to the emergency room, where she was thoroughly evaluated by Dr. Lira with complaints of abdominal pain and palpation of the mid abdomen showing an incarcerated hernia. The patient advises me that I saw her at least eight years ago for incisional hernia related to prior gastric bypass operation and had recommended a weight loss program before embarking on repair given her significant obesity at that time. Unfortunately, she has lost no weight since that time, and indeed she says she has actually gained weight. For the past two days, she has been unable to the eat due to the abdominal pain and so on. She did have protracted vomiting two days ago on Tuesday, which was bilious (?) without associated blood and she has had no bowel movement in the past three days. Her Adam-en-Y gastric bypass was approximately [address] scan showed fat stranding within the hernia and a 4.2 cm fascial defect. Bowel obstruction was associated as well. There was no clear evidence of internal hernia in any way and my review of the findings shows no sign of internal hernia either, though it is acknowledged it is a special hazard, particularly of patients with gastric bypass anatomy . Labs reviewed showing an elevated white count of 16,000, hematocrit 48.2 with platelets of 298,000. Chem profile is notable for creatinine that is elevated at 1.21, glucose 165, but otherwise normal. Lipase was 51. Urinalysis was essentially normal. The patient denies any chest pain, dyspnea, or shortness of breath in any way. SOCIAL HISTORY: She has a live-in male partner. She lives in [place]. She has no primary care provider currently. REVIEW OF SYSTEMS: She denies any shortness of breath or chest pain. She does have pain at the hernia site in the mid abdomen above the umbilicus. Electronically Signed By: AKIL OROZCO MD 07/30/23 1212 PATIENT NAME: STACEY GARCIA HISTORY AND PHYSICAL DATE OF : 61 REPORT #: [id number] PHYSICIAN: AKIL OROZCO MD PCP: NO PRIMARY CARE PHYSICIAN REPORT IS CONFIDENTIAL AND NOT TO BE RELEASED WITHOUT AUTHORIZATION [facility] [address], [place] [address] Signed PHYSICAL EXAMINATION: GENERAL: Significantly obese white woman, who weighs 125 kg and is 157 cm in height. NECK: Trachea is midline. She does not yet have a nasogastric tube, though it is anticipated in the near future. CHEST: Shows no evidence of tachypnea. HEART: Shows a wide-complex QRS configuration and EKG does show right bundle branch block. Her heart rate is variable between 90 and 147. I do not see signs of atrial fibrillation on the EKG. ABDOMEN: Quite markedly obese. There is a non reducible hernia in the midline above the umbilicus in the prior incision site. It is mildly tender. EXTREMITIES: Show no clubbing, cyanosis, or edema. LAB STUDIES: As reviewed previously. ASSESSMENT AND PLAN: The patient has an incarcerated incisional hernia, which is likely accounting for her bowel obstruction. Review of the x-ray does not show an internal hernia, but rather the hernia through the abdominal wall. Colon is noted in the hernia but there appear to be small bowel loops with dilation as well. Fluid resuscitation is underway and prompt repair of the hernia would be appropriate. The hernia has been present for a number of years and she does have significant abdominal obesity. Reduction of the hernia is not likely to cause compartment syndrome, but we will be mindful of the possibility of course. Given the issue of her heart rate episodically greater than 140 and with QRS wide-complex right bundle branch block configuration, we will consult the hospitalist cleaning matron, Dr. Diaz. Rate control by whatever means may be appropriate. In the meantime, fluid resuscitation is ongoing. Antibiotics will be administered and a nasogastric tube placed. As regard to the operation, I did discuss with her the risk of bleeding, infection, recurrent hernia long-term, cardiovascular complications, which may be significant as well as other unforeseen complications and need for possible bowel resection as appropriate. She understands all of these and wishes to proceed. Akil Orozco MD Electronically Signed By: AKIL OROZCO MD 07/30/23 1212 PATIENT NAME: SATCEY GARCIA HISTORY AND PHYSICAL DATE OF : 61 REPORT #: [id number] PHYSICIAN: AKIL OROZCO MD PCP: NO PRIMARY CARE PHYSICIAN REPORT IS CONFIDENTIAL AND NOT TO BE RELEASED WITHOUT AUTHORIZATION [facility] [address] [place] [id number] Signed /[facility] /[id number] cc: Vern Lira MD Copies: VERN LIRA MD ~ Electronically Signed By: AKIL OROZCO MD 07/30/23 1212 PATIENT NAME: STACEY AGRCIA HISTORY AND PHYSICAL DATE OF : 61 REPORT #: [id number] PHYSICIAN: AKIL OROZCO MD PCP: NO PRIMARY CARE PHYSICIAN REPORT IS CONFIDENTIAL AND NOT TO BE RELEASED WITHOUT AUTHORIZATION
[2023-07-30 14:02] VITALS: BP 107/84
--- NOTE | 2023-07-30 15:22 | NUR ---
recieved pt at 1510 from [facility] nurse. pt is stable and is currently in bed watching tv. pt states that her pain is a 3 and is not in need of any pain medications at this time. no other cares needed or requested at this time call light within reach
--- NOTE | 2023-07-30 16:00 | NUR ---
called dr contreras to clarify his orders for a tele on pt. explained pt took off her tele and refused to keep it on. i went to encourage her to wear it but pt stated that she is leaving tomorrow and she sees no point especially when her atenolol is working fine and she has no complications.
[2023-07-30] MEDS ORDERED: IBUPROFEN 600 MG TAB PO PRN (16:45)
--- NOTE | 2023-07-30 17:00 | NUR ---
checked on pt. pt states that she is doing wel with no pain at the mment. no other cares needed or required at this time. call light within
[2023-07-30 18:23] VITALS: BP 127/62
--- NOTE | 2023-07-30 19:38 | NUR ---
PT REQUESTED SOME PAIN MEDICATION AND FRESH ICE WATER. RN WAS NOTIFIED ABOUT THE MEDS AND PACKING FLOOR WORKER GAVE PT FRESH WATER.
[2023-07-30 19:40] VITALS: BP 127/62
--- NOTE | 2023-07-30 19:44 | NUR ---
awake, c/o abd pain 5/10 midline abd incison covered with opticot. AVINASH R low abd patent. Medicated with 1 [place]. Coop with assessment. SL RAC patent. clear lungs, passing gas, no bm yet, abd soft, tender. VERN. turns and repositions self in bed. will do vitals when pt calls after she wakes up.
--- NOTE | 2023-07-30 22:12 | EKG ---
[facility] [address] [facility] [place] [address] Signed Sinus rhythm with premature supraventricular complexes Right bundle branch block T wave abnormality, consider inferior ischemia Abnormal ECG When compared with ECG of 27-JUL-2023 16:26, Sinus rhythm has replaced Wide QRS tachycardia Confirmed by Regis Perez MD () on 07/30/2023 10:12:30 PM Electronically Signed By: REGIS PEREZ MD 07/30/23 2212 PATIENT NAME: STACEY GARCIA Electrocardiogram DATE OF : 61 PHYSICIAN: REGIS PEREZ MD REPORT #: [id number] REPORT IS CONFIDENTIAL AND NOT TO BE RELEASED WITHOUT AUTHORIZATION
--- NOTE | 2023-07-30 23:36 | NUR ---
RESTING, EYES CLOSED, NO S/SX DISTRESS, VS NOT DONE YET AT HER REQUEST EARLIER ON SHIFT. TURNS SELF IN BED.
[2023-07-31 00:44] VITALS: BP 99/57
--- NOTE | 2023-07-31 01:03 | NUR ---
0043- pt used call [facility], i need my pain med, medicated with [place] per 4/10 abd pain, cooperative with vitals and second assessment. up to brp, voided, back to bed, tolerated well.
--- NOTE | 2023-07-31 03:43 | NUR ---
Resting, eyes closed, no distress, turns and repositions self in bed
[2023-07-31 05:18] VITALS: BP 119/57
[2023-07-31 05:21] LABS: BASOPHILS 0.4 % (0-2); HEMATOCRIT 38.2 % (35.0-50.0); HEMOGLOBIN 12.6 g/dL (12.0-18.0); LYMPHOCYTES 27.5 % (24-44); MCH 29.1 (27-36); MCV 88.1 fl (81-99); MONOCYTES 6.3 % (0-12); NEUTROPHILS 63.8 % (39-80); PLATELET COUNT 247 K/uL (140-440); RBC 4.34 M/ul (4.3-5.7); RDW 13.4 (10.5-15.0)
[2023-07-31 05:28] LABS: ANION GAP 11.9 (7-21); BUN/CREATININE RATIO 16.3 (6.0-28.6); CREATININE, SERUM 0.92 mg/dL (0.55-1.02); POTASSIUM 3.9 mmol/L (3.5-5.1)
--- NOTE | 2023-07-31 05:44 | NUR ---
Pt has slept most of this shift, cooperative with assessments. midline abd incision covered with Opticot, AVINASH RLQ with old drainage. draining ss drainage. Abd tender, Has been medicated twice with [place], effective. Passing gas, and had bm's yesterday. Independent in room, Pt looking forward to being dc home today
--- NOTE | 2023-07-31 07:41 | NUR ---
recieved report at 0710 from nurse. pt is currently standing up in the bathroom washing her face and getting dressed due to anticipation of going home. no cares needed or requested at this sammy call light within reach
[2023-07-31 09:18] VITALS: BP 122/75
[2023-07-31] MEDS ORDERED: MAALOX/DIPHENHYDRAMINE/LIDOCAINE 1:1:1 BY VOLUME SUSP PO PRN (10:30)
--- NOTE | 2023-07-31 11:24 | NUR ---
pt in room and relaxing watchig television. no other cares needed or requested at this time. call light within
--- NOTE | 2023-07-31 11:49 | NUR ---
pt came to nursing station excited to tell me that she had a BM. BM WAS MEDIUM SIZED AND FORMED.
[2023-07-31] MEDS ORDERED: IBUPROFEN600 MG PO (12:50)
[2023-07-31] MEDS ORDERED: ATENOLOL25 MG PO (12:50)
[2023-07-31] MEDS ORDERED: ACETAMINOPHEN500 MG PO (12:50)
[2023-07-31 14:00] VITALS: BP 124/71
--- NOTE | 2023-08-02 19:31 | PATH ---
[facility] [address], [place] [address] Signed SPECIMEN(S): A PORTIONS OF ISCHEMIC OMENTUM HERNIA SAC SPECIMEN(S): B SMALL MECKELS DIVERTICULUM SPECIMEN SOURCE: A. PORTIONS OF ISCHEMIC OMENTUM HERNIA SAC B. SMALL MECKELS DIVERTICULUM - CLINICAL HISTORY: SBO, incarcerated incisional hernia. FINAL PATHOLOGIC DIAGNOSIS: A. Labeled as "portion of ischemic omentum: - Mature fatty tissue with congestion and mild chronic inflammation. - Negative for atypia or malignancy. B. Labeled as "small Meckel's diverticulum: - Mature fatty tissue with nodular area of smooth muscle tissue. - Negative for atypia or malignancy. NA MICROSCOPIC EXAMINATION: Histologic sections of all submitted blocks are examined by light microscopy. These findings, together with the gross examination, support the pathologic diagnosis. GROSS DESCRIPTION: A. The specimen, labeled and designated "Jessicafadirachel Hector, " and designated on the requisition "portion of ischemic omentum," is received in formalin and consists of two portions of omentum that measure 13.6 x 9.1 x 3.5 cm and 23.6 x 11.5 x 6.1 cm. The omentum is yellow-acuña, focally hemorrhagic and multilobulated. The larger tissue fragment is adherent onto itself and displays a pink-violaceous membranous tissue Equipment Validation Engineer sections are submitted in (A1). B. The specimen, labeled and designated "Jessicabernardo Hector, " and designated on the requisition "small Meckel's diverticulum," is received in formalin and consists of 4.3 x 3.6 x 1.0 cm pink focally congested portion of adipose tissue with a 0.5 x 0.5 x 0.4 cm white rubbery pedunculated area with staple line. Sectioning through this area reveals a white homogeneous cut surface. Equipment Validation Engineer sections are submitted in two cassettes. Cassette Summary: PATIENT NAME: STACEY GARCIA PATHOLOGY DATE OF : 61 REPORT #: [id number] PHYSICIAN: TEECastingDB UMESH PCP: NO PRIMARY CARE PHYSICIAN REPORT IS CONFIDENTIAL AND NOT TO BE RELEASED WITHOUT AUTHORIZATION [facility] [address], [place] [address] Signed (B1) pedunculated fragment, entirely submitted (B2) adjacent adipose tissue FB (under the direct supervision of a pathologist) The Gross Description was prepared using a voice recognition system. The report was reviewed for accuracy; however, sound-alike word errors, addition and/or deletions may occur. If there is any question about this report, please contact Client Services. ADDITIONAL NOTES: Immunohistochemical and/or in situ hybridization studies if performed in this case included appropriate positive controls that reacted as expected. This test was developed and its performance characteristics determined by [facility]. It has not been cleared or approved by the U.S. Food and Drug Administration. The FDA has determined that such clearance or approval is not necessary. This test is used for clinical purposes. It should not be regarded as investigational or for research. [facility] is certified under the Clinical Laboratory Improvement Amendments of 1988 (CLIA) as qualified to perform high complexity clinical laboratory testing. PERFORMING LABORATORY: Technical component was performed by [facility], [address] [place] [id number] (CLIA# [id number]). Professional interpretation was performed by [facility] [place], [address] [place] [id number] (CLIA#: [id number]). Diagnostician: Geri Baez MD Pathologist Electronically Signed 08/02/2023 Copies: ~ PATIENT NAME: STACEY GARCIA PATHOLOGY DATE OF : 61 REPORT #: [id number] PHYSICIAN: GROVER CALVO PCP: NO PRIMARY CARE PHYSICIAN REPORT IS CONFIDENTIAL AND NOT TO BE RELEASED WITHOUT AUTHORIZATION
== END 2023-07-31 15:13 | disposition home or self-care (01) | DRG 329 ==
LOC: ED 12:30 → CCU 16:50 → ED 16:50 → MS 07-30 15:10
PROVIDERS: Emergency Medicine; Family Medicine; ADMIT Surgery; ATTEND Surgery
PROC: 0DB80ZZ Excision of Small Intestine, Open Approach (ICD-10-PCS; principal; 2023-07-30)
PROC: 0DNW0ZZ Release Peritoneum, Open Approach (ICD-10-PCS; 2023-07-30)
PROC: 0WUF0JZ Supplement Abdominal Wall with Synthetic Substitute, Open Approach (ICD-10-PCS; 2023-07-30)
PROC: 0DBU0ZZ Excision of Omentum, Open Approach (ICD-10-PCS; 2023-07-30)
PROC: 0DQ80ZZ Repair Small Intestine, Open Approach (ICD-10-PCS; 2023-07-30)
DX: K43.0 Incisional hernia with obstruction, without gangrene (principal); K55.069 Acute infarction of intestine, part and extent unspecified; Z68.43 Body mass index [BMI] 50.0-59.9, adult; E66.01 Morbid (severe) obesity due to excess calories; K66.0 Peritoneal adhesions (postprocedural) (postinfection); I45.10 Unspecified right bundle-branch block; I49.3 Ventricular premature depolarization; I10 Essential (primary) hypertension; Q43.0 Meckel's diverticulum (displaced) (hypertrophic); Z98.84 Bariatric surgery status
CPT/HCPCS: 00750; 36415; 64420; 71045; 74018; 74177; 76942; 80048; 80053; 81003; 83690; 83735; 84100; 84439; 84443; 84484; 85025; 93005; 93010; A9270; C1781; J0131; J0330; J0690; J1100; J1170; J1885; J2001; J2060; J2250; J2371; J2405; J2704; J2795; J3010; J3475; J3480; J3490; J7060; J7121; Q9967